=== PATIENT | female | born 1965 | race Caucasian/White ===

== ENCOUNTER 2022-04-04 10:43 | Emergency (ER) | payer OTHER ==
[~2022-04-04] VITALS: Ht 162.6 cm; Wt 72.6 kg
[2022-04-04 10:58] VITALS: BP 141/65
--- NOTE | 2022-04-04 11:01 | NUR ---
AMBULATED TO BED 7
[2022-04-04] MEDS ORDERED: KETOROLAC 60 MG/2 ML VIAL IM ONE (11:30)
--- NOTE | 2022-04-04 11:30 | NUR ---
57YO FEMALE PT C/O PRESSURED 8/10 HEADACHE AND NECK PAIN XTHIS MORNING. NOTES FATIGUENESS AND NUMBING IN L HAND AND LOWER ARM. STATES BURNING DYSURIA , DENIES BLOOD. DENIES INJURY , LOSS OF SENSATION , N/V/D , CHEST PAIN OR SOB. NO VISIBLE INJURY IN NECK . PT ABLE TO LIFT ARM AND MOVE NECK W/ EASE. DENIES TAKING MEDICATION FOR PAIN. PT AAOX4, AMBULATORY W/ STEADY GAIT. NO VISIBLE DISTRESS, RESPIRATIONS EVEN AND UNLABORED. HOB POSITIONED PER COMFORT. BED AT LOWEST POSITION, BED RAILS UP X2. BRITISH SPEAKING. HX: DIABETES, HTN, HLD NKA
--- NOTE | 2022-04-04 11:45 | NUR ---
57/F PRESENTS TO ED WITH C/O 8/10 HEAD PRESSURE AND LEFT ARM NUMBNESS TODAY, REPROTS TAKING TYLENOL WITH SOME RELIEF. DENIES DIZZINESS OR VISION CHANGES. ALSO C/O DYSURIA TODAY, DENIES FEVERS OR CHILLS.
--- NOTE | 2022-04-04 11:58 | NUR ---
MD DOMINGO AT BEDSIDE FOR EVALUATION
[2022-04-04] MEDS ORDERED: CIPR500T4 PO (12:22)
[2022-04-04] MEDS ORDERED: IBUP-2213 PO (12:22)
[2022-04-04 12:54] VITALS: BP 131/67
--- NOTE | 2022-04-04 12:54 | NUR ---
Patient discharged with v/s stable. Written and verbal after care instructions FOR UTI AND GENERAL WEAKNESS W/O CAUSE given and explained. Patient alert, oriented and verbalized understanding of instructions. Ambulatory with steady gait. All questions addressed prior to discharge. ID band removed. Patient advised to follow up with PMD. Rx of CIPRO AND IBUPROFEN given. Opportunity to ask questions provided and answered.
--- NOTE | 2022-04-04 13:00 | NUR ---
The patient's care was reviewed and supervised by Rashmi Bass RN.
== END 2022-04-04 12:54 | disposition home or self-care (01) ==
LOC: MED 10:43
DX: R51.9 Headache, unspecified (principal); N39.0 Urinary tract infection, site not specified; R30.0 Dysuria; E11.9 Type 2 diabetes mellitus without complications; I10 Essential (primary) hypertension; Z98.890 Other specified postprocedural states
CPT/HCPCS: 81002; 81025; 96372; 99283; J1885